=== PATIENT | male | born 1945 | race Caucasian/White ===

== ENCOUNTER 2019-07-20 08:38 | Emergency (ER) | payer OTHER, BC ==
[~2019-07-20] VITALS: Ht 177.8 cm; Wt 90.7 kg
[2019-07-20 08:44] VITALS: BP_SYST 125
--- NOTE | 2019-07-20 08:45 | NUR ---
MD PEREZ AT BEDSIDE.
--- NOTE | 2019-07-20 08:50 | NUR ---
Patient to ER bed 4 to gown for evaluation. Side rails up. Report given to [].
--- NOTE | 2019-07-20 08:55 | NUR ---
PT TAKEN TO CT HEAD NOW VIA W/C.
--- NOTE | 2019-07-20 08:55 | NUR ---
Patient taken to radiology via wheelchair, escorted by radiology staff.
[2019-07-20] MEDS ORDERED: BACITRACIN 1 GM OINT TP ONE (09:00)
[2019-07-20] MEDS ORDERED: ACETAMINOPHEN 325 MG TABLET PO ONE (09:00)
--- NOTE | 2019-07-20 09:05 | NUR ---
PT BACK FROM CT.
--- NOTE | 2019-07-20 09:30 | NUR ---
RN HAS DONE WOUND CARE ON THE PTS FOREHEAD ORDERED BY MD. PT IS STABLE AND AWAITING MD TO DC IF CT CAN REPORT IS NORMAL.
--- NOTE | 2019-07-20 10:00 | NUR ---
Patient given written and verbal discharge instructions and verbalizes understanding. ER MD discussed with patient the results and treatment provided. Patient in stable condition. ID arm band removed. Rx of KEFLEX TYLENOL BACITRACIN given. Patient educated on pain management and to follow up with PMD. Pain Scale . Opportunity for questions provided and answered. Medication side effect fact sheet provided.
[2019-07-20 10:10] VITALS: BP_SYST 134
== END 2019-07-20 10:10 | disposition home or self-care (01) ==
LOC: SED 08:38
DX: S00.81XA Abrasion of other part of head, initial encounter (principal); W18.39XA Other fall on same level, initial encounter; Y93.89 Activity, other specified; Y92.89 Other specified places as the place of occurrence of the external cause; Y99.8 Other external cause status
CPT/HCPCS: 70450-TC; 99284